=== PATIENT | female | born 1950 | race Caucasian/White ===

== ENCOUNTER → 2022-03-13 14:30 | Outpatient (BNVA) | payer MEDICARE, SELFPAY | PROVIDERS: PCP Internal Medicine; Visit Provider Psychiatry & Neurology Neurology | DX: R25.1 Tremor, unspecified (principal); M47.812 Spondylosis without myelopathy or radiculopathy, cervical region; M47.816 Spondylosis without myelopathy or radiculopathy, lumbar region; Z79.899 Other long term (current) drug therapy | CPT/HCPCS: 99212 ==

== ENCOUNTER → 2023-01-01 12:42 | Outpatient (BNVA) | payer MEDICARE, SELFPAY | PROVIDERS: PCP Internal Medicine; Visit Provider Nurse Practitioner Family | DX: R25.1 Tremor, unspecified (principal); M47.812 Spondylosis without myelopathy or radiculopathy, cervical region; S91.301D Unspecified open wound, right foot, subsequent encounter | CPT/HCPCS: 99212 ==

== ENCOUNTER 2023-07-06 11:02 | Outpatient (AMB) | payer MEDICARE, SELFPAY ==
[2023-07-06 11:04] VITALS: BP 124/84; BMI 30.6
--- NOTE | 2023-07-06 11:04 | MHC.OFFVIS ---
Intake Vital Signs 07/06/23 11:04 Height 5 ft 6 in Weight 189 lb 6 oz BMI 30.6 BP 124/84 Blood Pressure Location Rt brachial Position Sitting Intake Visit Reasons: 6m Follow up Tremors-Confirmed Intake Note: Patient presents for 6 month follow up. Patient states kind of the same, i get cramps in my back. Allergies Antihistamines - Alkylamine Allergy (Mild, Verified 07/06/23 11:07) Unknown Medication List - Last Reconciled 07/06/23 by BRENT Ralph albuterol sulfate 90 mcg/actuation 0 mcg inhalation aspirin 81 mg PO DAILY calcium carbonate (Tums) 300 mg PO BID cholecalciferol (vitamin D3) 25 mcg PO DAILY citalopram 20 mg PO DAILY clobetasol 0.05% 1 appl topical BID fluticasone propionate 50 mcg/actuation (Flonase Allergy Relief) 1 spray intranasal DAILY PRN lisinopril 2.5 mg PO DAILY PRN [id number] carb-vit K 18 mg iron-400 mcg-500 mg 1 tab PO BEDTIME rosuvastatin 40 mg PO DAILY HPI HPI Comments History of Present Illness Details 72-yr-old female presents for f/u visit. Pt denies any significant interval medical changes. Pt reports her tremors are stable- left-sided- randomly comes and goes. She can not identify any specific pattern or triggers. She did not notice any correlation between tremor and alcohol intake. She does wake up feeling stiff- better as she starts moving. She is trying to walk more- has an upcoming trip to the [facility] [place] [address]. She does notice that she is more hoarse lately- she attributes to fall allergies. Denies dysphagia. But sometimes may swallow air the wrong way and cannot feel like she can catch her breathe- her mother/grandmother did this as well. [facility] Medical History Cervical spondylosis HTN (hypertension) Hyperlipidemia Lumbar spondylosis Stroke Tremors of nervous system Surgical History History of removal of both ovaries Family History Father Kidney disease Cancer Heart disease Mother Kidney disease Arthritis Tremor CAD (coronary artery disease) Family/Other Cancer Asthma Allergy Social History Alcohol intake: current Alcohol type: wine Patient Tobacco Use Status: Never used Tobacco Review of Systems Const All systems reviewed & are unremarkable except as noted in HPI and below Physical Exam Vital Signs: Last Vital Signs BP 124/84 07/06/23 11:04 BMI result Body Mass Index 30.6 Const General: cooperative and no acute distress Orientation/consciousness: patient oriented x3 HEENT Head: Yes normocephalic Resp Effort & Inspection: normal respiratory effort and able to speak in complete sentences Neuro Other: Mildly hoarse voice Mild LUE postural tremor. Mild LUE tone. FFM and foot taps- intact. Stands ok, decreased arm swing, steady gait. General: patient oriented x3 and CN's II-XI intact bilaterally Cognition (Neuro): normal cognition Motor exam (neuro): 5/5 motor strength present throughout Psych Appearance: grossly normal Mental Status: mental status grossly normal Affect: normal affect Attitude: cooperative Thought process: Normal thought process present Assessment & Plan Assessment & Plan (1) Tremors of nervous system: Code(s): R25.1 - Tremor, unspecified Plan Monitor tremor. Advised to wear well-fitting shoes/orthotics and try a walking stick during her upcoming trip to [facility]. Continue citalopram 20mg qd f/u in 6 months or sooner prn. Coding Level of Care Code Est Pt Level 3 (84005) Diagnoses Tremors of nervous system R25.1
== END 2023-07-06 12:00 | disposition home or self-care (01) ==
PROVIDERS: Visit Provider Nurse Practitioner Family
DX: R25.1 Tremor, unspecified (principal)
CPT/HCPCS: 99213

== ENCOUNTER → 2023-07-06 11:02 | Outpatient (BNVA) | payer MEDICARE, SELFPAY | PROVIDERS: Visit Provider Nurse Practitioner Family | DX: R25.1 Tremor, unspecified (principal); Z86.73 Personal history of transient ischemic attack (TIA), and cerebral infarction without residual deficits | CPT/HCPCS: 99212 ==

== ENCOUNTER 2024-01-04 10:53 | Outpatient (AMB) | payer MEDICARE, SELFPAY ==
[2024-01-04 10:55] VITALS: BP 124/82; PULSE 82; O2SAT 98; BMI 30.2
--- NOTE | 2024-01-04 10:55 | MHC.OFFVIS ---
Intake Vital Signs 01/04/24 10:55 Height 5 ft 6 in Weight 187 lb BMI 30.2 BP 124/82 Blood Pressure Location Rt brachial Position Sitting Pulse 82 Pulse Source Pulse Oximeter Pulse Oximetry (%) 98 Oxygen Delivery Method Room Air Intake Visit Reasons: 6 mnts f/u appt for Tremors-LVM Intake Note: Patient presents for follow up 6 months tremors. Patient fell and broke ankle feels more stiff. Allergies Antihistamines - Alkylamine Allergy (Mild, Verified 01/04/24 10:59) Unknown HPI HPI Comments History of Present Illness Details 73 -yr-old female presents for f/u visit. Pt reports the following interval medical history changes: Pt broke her right ankle while walking down a slippery hill- traveling in [facility]. She was hospitalized in [facility] for 9 days before she was flown back to [place], where she eventually underwent a right ankle ORIF at [facility]. This is healing well. She is using a cane, walker, and w/c. She is noticing some more balance issues and back pain. She is prone to shuffling the right leg more, having more difficulty walking heel-toe. Cannot stand as long as she used to be able to. She has noticed some dizziness, even in bed, which she was attributing this how she had been walking, feeling generalized neck and back stiffness. She has completed home PT and will be starting out-pt PT at [facility]. Using Baclofen (low dose) sparingly prn. Using magnesium cream locally to her back, which is helpful. Her tremor has been stable- in hands and head. [facility] Medical History (Updated 01/04/24 @ 17:33 by BRENT Ralph) Open wound of right heel Tremors of nervous system Lumbar spondylosis Cervical spondylosis Stroke Hyperlipidemia HTN (hypertension) Surgical History (Updated 01/04/24 @ 11:00 by VIRGIL Pardo) History of ankle surgery History of removal of both ovaries Family History Father Kidney disease Cancer Heart disease Mother Kidney disease Arthritis Tremor CAD (coronary artery disease) Family/Other Cancer Asthma Allergy Social History Alcohol intake: current Alcohol type: wine Patient Tobacco Use Status: Never used Tobacco Review of Systems Const All systems reviewed & are unremarkable except as noted in HPI and below Physical Exam Vital Signs: Last Vital Signs Pulse 82 01/04/24 10:55 BP 124/82 01/04/24 10:55 Pulse Ox 98 01/04/24 10:55 Oxygen Delivery Method Room Air 01/04/24 10:55 BMI result Body Mass Index 30.2 Const General: cooperative and no acute distress Resp Effort & Inspection: normal respiratory effort and able to speak in complete sentences Neuro Other: Intact facial expression LUE postural tremor- in wing beat position. BUE mild tone. Gait- slow to stand, sorter steps, right leg w/ lower floor clearance, steady w/ cane. Assessment & Plan Assessment & Plan (1) Tremors of nervous system: Code(s): R25.1 - Tremor, unspecified (2) Gait difficulty: Comment: s/p right ankle fracture and ORIF at [facility] Code(s): R26.9 - Unspecified abnormalities of gait and mobility Plan Monitor tremor. Continue Magnesium cream prn to low back, consider trying on her posterior cervical muscles. Continue Baclofen prn. Try warm pack x's 20 minutes to cervical region f/b cervical/upper body ROM exercises. Continue citalopram 20mg qd ? f/u in 6 months or sooner prn. Coding Level of Care Code Est Pt Level 4 (65226) Diagnoses Tremors of nervous system R25.1 Gait difficulty R26.9
== END 2024-01-04 11:47 | disposition home or self-care (01) ==
PROVIDERS: PCP Internal Medicine; Visit Provider Nurse Practitioner Family
DX: R25.1 Tremor, unspecified (principal); R26.9 Unspecified abnormalities of gait and mobility
CPT/HCPCS: 99214

== ENCOUNTER → 2024-01-04 10:53 | Outpatient (BNVA) | payer MEDICARE, SELFPAY | PROVIDERS: PCP Internal Medicine; Visit Provider Nurse Practitioner Family | DX: R25.1 Tremor, unspecified (principal); R26.9 Unspecified abnormalities of gait and mobility; Z87.81 Personal history of (healed) traumatic fracture | CPT/HCPCS: 99212 ==

== ENCOUNTER 2025-01-11 12:51 | Outpatient (AMB) | payer MEDICARE, SELFPAY ==
[2025-01-11 12:55] VITALS: BP 112/82; PULSE 72; O2SAT 97
--- NOTE | 2025-01-11 12:55 | A.OFFVIS_ITS ---
Vital Signs 01/11/25 12:55 Weight 189 lb BP 112/82 Blood Pressure Location Rt brachial Position Sitting Pulse 72 Pulse Source Pulse Oximeter Pulse Oximetry (%) 97 Oxygen Delivery Method Room Air Intake Visit Reasons: 6 mo f/u Intake Note: patient following up 6 month gait difficulty [employer] Required: No Accompanied by: Self / Same As Patient Allergies Antihistamines - Alkylamine Allergy (Mild, Verified 01/11/25 12:55) Unknown HPI Comments Details: 74-yr-old female presents for f/u visit for tremor. Pt denies any significant interval changes. She has completed PT. She is doing a bone health exercise class, which has been helping her right ankle pain- s/p ankle fracture. She was having some increased lower back discomfort moving down both legs last week a/w abd bloating. Notes that she was unable to go regularly due to the gym class fills up. She wonders if this pain could be r/t osteoporosis or abd s/s. Osteoporosis is tx'd w/ prolia tx- states has been slowly improving. Notes anxiety r/t fear of falling falling s/p falling and fracturing her ankle last yr in [facility]. However, she is hoping to take another vacation to [facility] this year- considering using walking sticks. Using Baclofen (low dose) sparingly prn. Using magnesium or hemp cream locally to her back, which is helpful. Her hand and head tremor has been stable. [facility] Medical History (Updated 01/11/25 @ 16:09 by BRENT Ralph) Open wound of right heel Tremors of nervous system Lumbar spondylosis Cervical spondylosis Stroke Hyperlipidemia HTN (hypertension) Surgical History History of ankle surgery History of removal of both ovaries Family History Father Kidney disease Cancer Heart disease Mother Kidney disease Arthritis Tremor CAD (coronary artery disease) Family/Other Cancer Asthma Allergy Social History Alcohol intake: current Alcohol type: wine Patient Tobacco Use Status: Never used Tobacco Physical Exam Vital Signs: Last Vital Signs Pulse 72 01/11/25 12:55 BP 112/82 01/11/25 12:55 Pulse Ox 97 01/11/25 12:55 Oxygen Delivery Method Room Air 01/11/25 12:55 Const General: cooperative and no acute distress Resp Effort & Inspection: normal respiratory effort and able to speak in complete sentences Neuro Other: Intact facial expression LUE postural tremor- in wing beat position. BUE mild tone. Mild right lower paraspinal tightness and tenderness. Gait- slow to stand, sorter steps, right leg w/ lower floor clearance, steady w/ cane. General: deep tendon reflexes 2+ bilaterally Cranial nerves: Yes CN's II-XII intact bilaterally Motor exam (neuro): 5/5 motor strength present throughout Assessment & Plan Assessment & Plan (1) Tremors of nervous system: Code(s): R25.1 - Tremor, unspecified Category: Medical (2) Lumbar spondylosis: Code(s): M47.816 - Spondylosis without myelopathy or radiculopathy, lumbar region Category: Medical (3) Gait difficulty: Comment: improved, s/p right ankle fracture and ORIF at [facility] Code(s): R26.9 - Unspecified abnormalities of gait and mobility Category: Medical Plan Monitor tremor. Continue Magnesium or hemp cream prn to low back, consider trying on her posterior cervical muscles. Continue Baclofen 10mg at bedtime prn. Try warm pack x's 20 minutes to cervical and/or lumbar spine. Encouraged pt to continue regualr exercise program. Concur w/ using walking sticks when traveling abroad. Answered questions r/t low back pain w/ sciatic s/s. Continue citalopram 20mg qd ? f/u in 6 months or sooner prn. Coding Level of Care Code Est Pt Level 4 (99720) Diagnoses Tremors of nervous system R25.1 Lumbar spondylosis M47.816 Gait difficulty R26.9
== END 2025-01-11 13:51 | disposition home or self-care (01) ==
LOC: HO.HSMS 12:51
PROVIDERS: PCP Internal Medicine; Visit Provider Nurse Practitioner Family
DX: R25.1 Tremor, unspecified (principal); M47.816 Spondylosis without myelopathy or radiculopathy, lumbar region; R26.9 Unspecified abnormalities of gait and mobility
CPT/HCPCS: 99214

== ENCOUNTER → 2025-01-11 12:51 | Outpatient (BNVA) | payer MEDICARE, SELFPAY | PROVIDERS: PCP Internal Medicine; Visit Provider Nurse Practitioner Family | DX: M47.816 Spondylosis without myelopathy or radiculopathy, lumbar region (principal); R25.1 Tremor, unspecified; R26.9 Unspecified abnormalities of gait and mobility | CPT/HCPCS: 99212 ==